=== PATIENT | male | born 1965 | race Caucasian/White ===

== ENCOUNTER 2021-08-07 11:38 | Emergency (ER) | payer MEDICAID ==
[~2021-08-07] VITALS: Ht 167.6 cm; Wt 60.0 kg
[2021-08-07] MEDS ORDERED: EPOETIN ALFA-EPBX 4,000 UNIT/ML VIAL SUBCUT ONE (12:15)
[2021-08-07 12:20] LABS: MEAN CORPUSCULAR HEMOGLOBIN 31.4 pg (28.0-32.0); MEAN CORPUSCULAR VOLUME 90.7 fL (80.0-94.0); MEAN PLATELET VOLUME 6.9 fl (7.4-10.4); PLATELET 317 x1000/uL (130-400); RED BLOOD CELL COUNT 1.81 mill/uL (4.7-6.1); RED CELL DISTRIBUTION WIDTH 14.6 % (11.6-14.6)
[2021-08-07 12:27] LABS: HEMATOCRIT. 16.4 % (42.0-52.0); HEMOGLOBIN. 5.7 g/dL (14.0-18.0)
[2021-08-07 12:28] LABS: CHLORIDE 98 mEq/L (98-107)
[2021-08-07 12:31] LABS: INR 1.1; PROTHROMBIN TIME 11.8 sec (9.6-11.0)
[2021-08-07 13:02] LABS: PLATELET ESTIMATE NORMAL
[2021-08-07 18:47] LABS: HEMATOCRIT 23.3 % (42.0-52.0); HEMOGLOBIN 8.1 g/dL (14.0-18.0)
[2021-08-08 02:00] VITALS: BP 150/78
== END 2021-08-08 02:12 | disposition home or self-care (01) ==
LOC: ER 11:38
DX: N18.6 End stage renal disease (principal); D63.1 Anemia in chronic kidney disease; Z99.2 Dependence on renal dialysis
CPT/HCPCS: 36415; 80053; 85014; 85018; 85025; 85610; 86850; 86900; 86901; 86920; 99291; J0885; P9016

== ENCOUNTER 2021-10-04 18:14 | Inpatient (IN) | payer MEDICAID ==
[~2021-10-04] VITALS: Ht 170.2 cm; Wt 59.0 kg
[2021-10-04 20:07] LABS: MEAN CORPUSCULAR VOLUME 92.3 fL (80.0-94.0); MEAN PLATELET VOLUME 6.8 fl (7.4-10.4); PLATELET 327 x1000/uL (130-400); RED BLOOD CELL COUNT 2.16 mill/uL (4.7-6.1); RED CELL DISTRIBUTION WIDTH 14.3 % (11.6-14.6)
[2021-10-04 20:13] LABS: CHLORIDE 99 mEq/L (98-107)
[2021-10-04 20:19] LABS: HEMOGLOBIN. 6.7 g/dL (14.0-18.0)
[2021-10-04 20:20] LABS: HEMATOCRIT. 19.9 % (42.0-52.0)
[2021-10-04 21:49] LABS: PLATELET ESTIMATE NORMAL
[2021-10-05] MEDS ORDERED: EPOETIN ALFA 4000UNITS/ML VIAL SUBCUT NR (01:45)
[2021-10-05] MEDS ORDERED: EPOETIN ALFA-EPBX 4,000 UNIT/ML VIAL SUBCUT NR ×2 (02:33→21:00)
[2021-10-05 10:00] VITALS: BP 155/69
[2021-10-05] MEDS ORDERED: DOCUSATE SODIUM 100MG CAPSULE PO PRN (10:00)
[2021-10-05] MEDS ORDERED: LORAZEPAM 0.5MG TABLET PO PRN (10:00)
[2021-10-05] MEDS ORDERED: IPRATROPIUM/ALBUTEROL 0.5-3(2.5)MG/3ML NEB HHN PRN (10:00)
[2021-10-05] MEDS ORDERED: ONDANSETRON HCL 4MG/2ML INJ IV PRN (10:00)
[2021-10-05] MEDS ORDERED: ACETAMINOPHEN 325MG TABLET PO PRN ×2 (10:00)
[2021-10-05] MEDS ORDERED: HYDROCODONE/ACETAMINOPHEN 5/325MG TABLET PO PRN (10:00)
[2021-10-05] MEDS ORDERED: INSU100V3 SUBCUT (11:19)
[2021-10-05] MEDS ORDERED: METO25TA6 PO ×2 (11:19→14:47)
[2021-10-05] MEDS ORDERED: CLOP75TA33 PO (11:19)
[2021-10-05] MEDS ORDERED: MULT-1146 PO (11:19)
[2021-10-05] MEDS ORDERED: ASCO100T12 PO (11:19)
[2021-10-05] MEDS ORDERED: NEPVIT MT (11:19)
[2021-10-05] MEDS ORDERED: HYDR-4001 PO (11:19)
[2021-10-05] MEDS ORDERED: TAMS-11 PO (11:19)
[2021-10-05] MEDS ORDERED: ZINC220T3 (11:19)
[2021-10-05] MEDS ORDERED: LANS30CA55 PO (11:19)
[2021-10-05] MEDS ORDERED: APIX5TAB PO (11:19)
[2021-10-05] MEDS ORDERED: FOLI-43 PO (11:19)
[2021-10-05] MEDS ORDERED: AMLO5TAB88 PO (11:19)
[2021-10-05] MEDS ORDERED: ISOS40TA17 PO (11:19)
[2021-10-05] MEDS ORDERED: DOCU-150 PO (11:19)
[2021-10-05] MEDS ORDERED: ATOR20TA65 PO (11:19)
[2021-10-05] MEDS ORDERED: HYDR-4135 PO (11:19)
[2021-10-05] MEDS ORDERED: GABA-529 PO ×2 (11:19→14:49)
[2021-10-05] MEDS ORDERED: DICL100G31 TP (11:19)
[2021-10-05] MEDS ORDERED: ASPI-1497 PO (11:19)
[2021-10-05 12:00] VITALS: BP 116/71
[2021-10-05] MEDS ORDERED: NALOXONE HCL 0.4MG/ML VIAL IV PRN (14:45)
[2021-10-05] MEDS ORDERED: ASPI-864 PO (14:48)
[2021-10-05 16:00] VITALS: BP 158/65
[2021-10-05] MEDS: ISOSORBIDE DINITRATE 20MG TABLET PO SCH (16:17)
[2021-10-05] MEDS: GABAPENTIN 100MG CAPSULE PO SCH (16:17)
[2021-10-05 16:43] LABS: BASOPHILS % 1.4 % (0.0-2.0); EOSINOPHILS % 27.1 % (0.0-5.0); HEMATOCRIT. 27.3 % (42.0-52.0); HEMOGLOBIN. 9.2 g/dL (14.0-18.0); LYMPHOCYTES % 10.7 % (20.0-50.0); MEAN CORPUSCULAR HEMOGLOBIN 30.7 pg (28.0-32.0); MEAN CORPUSCULAR VOLUME 91.2 fL (80.0-94.0); MEAN PLATELET VOLUME 7.1 fl (7.4-10.4); NEUTROPHILS % 56.8 % (40.0-76.0); PLATELET 370 x1000/uL (130-400); RED CELL DISTRIBUTION WIDTH 14.2 % (11.6-14.6)
[2021-10-05] MEDS ORDERED: APIXABAN 5 MG TABLET PO SCH (17:00)
[2021-10-05 20:00] VITALS: BP 144/73
[2021-10-05] MEDS: TAMSULOSIN HCL 0.4MG SR CAPSULE PO SCH (21:16)
[2021-10-05] MEDS: ATORVASTATIN CALCIUM 20MG TABLET PO SCH (21:17)
[2021-10-06] VITALS: BP 154/66
[2021-10-06 04:00] VITALS: BP 152/59
[2021-10-06 06:35] LABS: HEMATOCRIT. 23.9 % (42.0-52.0); HEMOGLOBIN. 8.4 g/dL (14.0-18.0); MEAN CORPUSCULAR HEMOGLOBIN 31.2 pg (28.0-32.0); MEAN CORPUSCULAR VOLUME 89.1 fL (80.0-94.0); MEAN PLATELET VOLUME 6.8 fl (7.4-10.4); PLATELET 349 x1000/uL (130-400); RED BLOOD CELL COUNT 2.68 mill/uL (4.7-6.1); RED CELL DISTRIBUTION WIDTH 14.5 % (11.6-14.6)
[2021-10-06 08:09] VITALS: BP 157/64
[2021-10-06] MEDS: GABAPENTIN 100MG CAPSULE PO SCH ×3 (08:33→16:34)
[2021-10-06] MEDS: ISOSORBIDE DINITRATE 20MG TABLET PO SCH ×3 (08:33→16:33)
[2021-10-06] MEDS: FOLIC ACID/VITAMIN B COMP W-C TABLET PO SCH (08:33)
[2021-10-06] MEDS: DOCUSATE SODIUM 100MG CAPSULE PO SCH (08:33)
[2021-10-06] MEDS ORDERED: CLOPIDOGREL 75MG TABLET PO SCH (09:00)
[2021-10-06] MEDS ORDERED: ASPIRIN 81MG EC TABLET PO SCH (09:00)
[2021-10-06 09:20] LABS: PLATELET ESTIMATE NORMAL
[2021-10-06 12:01] VITALS: BP 170/63
[2021-10-06] MEDS: CLONIDINE 0.1MG TABLET PO PRN (12:15)
[2021-10-06 13:06] LABS: HEPATITIS B SURFACE ANTIGEN NEGATIVE
[2021-10-06 15:18] VITALS: BP 150/56
[2021-10-06 20:00] VITALS: BP 155/61
[2021-10-06] MEDS: ATORVASTATIN CALCIUM 20MG TABLET PO SCH (21:28)
[2021-10-06] MEDS: TAMSULOSIN HCL 0.4MG SR CAPSULE PO SCH (21:30)
[2021-10-06] MEDS ORDERED: IRON SUCROSE COMPLEX 100 MG/5 ML ML IV NR (23:54)
[2021-10-06] MEDS ORDERED: EPOETIN ALFA-EPBX 4,000 UNIT/ML VIAL SUBCUT NR (23:59)
[2021-10-07] VITALS: BP 138/81
[2021-10-07 04:00] VITALS: BP 151/63
[2021-10-07 08:00] VITALS: BP 158/63
[2021-10-07] MEDS: FOLIC ACID/VITAMIN B COMP W-C TABLET PO SCH (09:23)
[2021-10-07] MEDS: DOCUSATE SODIUM 100MG CAPSULE PO SCH (09:24)
[2021-10-07] MEDS: GABAPENTIN 100MG CAPSULE PO SCH ×3 (09:24→16:43)
[2021-10-07] MEDS: ISOSORBIDE DINITRATE 20MG TABLET PO SCH ×3 (09:24→16:43)
[2021-10-07] MEDS: IRON SUCROSE COMPLEX 100 MG/5 ML ML IV SCH (09:25)
[2021-10-07 12:00] VITALS: BP 143/59
[2021-10-07 15:47] VITALS: BP 136/61
[2021-10-07 20:00] VITALS: BP 145/60
[2021-10-07] MEDS ORDERED: SODIUM POLYSTYRENE SULFONATE 15 G/60 ML BOT PO NR (20:00)
[2021-10-07] MEDS ORDERED: EPOETIN ALFA-EPBX 4,000 UNIT/ML VIAL SUBCUT SCH (21:00)
[2021-10-07] MEDS ORDERED: EPOETIN ALFA-EPBX 4,000 UNIT/ML VIAL SUBCUT NR (21:00)
[2021-10-07] MEDS: TAMSULOSIN HCL 0.4MG SR CAPSULE PO SCH (21:23)
[2021-10-07] MEDS: ATORVASTATIN CALCIUM 20MG TABLET PO SCH (21:23)
[2021-10-08] VITALS (8 sets, daily range): BP systolic 133–170; BP diastolic 61–74
[2021-10-08] MEDS: CLONIDINE 0.1MG TABLET PO PRN ×2 (00:52→09:46)
[2021-10-08 06:59] LABS: HEMATOCRIT. 23.2 % (42.0-52.0); HEMOGLOBIN. 8.2 g/dL (14.0-18.0); MEAN CORPUSCULAR VOLUME 90.2 fL (80.0-94.0); MEAN PLATELET VOLUME 6.8 fl (7.4-10.4); PLATELET 383 x1000/uL (130-400); RED BLOOD CELL COUNT 2.57 mill/uL (4.7-6.1); RED CELL DISTRIBUTION WIDTH 14.6 % (11.6-14.6)
[2021-10-08] MEDS: DOCUSATE SODIUM 100MG CAPSULE PO SCH (09:00)
[2021-10-08] MEDS: FOLIC ACID/VITAMIN B COMP W-C TABLET PO SCH (09:37)
[2021-10-08] MEDS: ISOSORBIDE DINITRATE 20MG TABLET PO SCH ×4 (09:38→17:00)
[2021-10-08] MEDS: GABAPENTIN 100MG CAPSULE PO SCH ×2 (09:47→14:17)
[2021-10-08 10:34] LABS: PLATELET ESTIMATE NORMAL
[2021-10-08] MEDS: IRON SUCROSE COMPLEX 100 MG/5 ML ML IV SCH (11:46)
[2021-10-08] MEDS: ATORVASTATIN CALCIUM 20MG TABLET PO SCH (20:11)
[2021-10-08] MEDS: TAMSULOSIN HCL 0.4MG SR CAPSULE PO SCH (20:11)
[2021-10-09 04:10] VITALS: BP 154/59
[2021-10-09 08:00] VITALS: BP 165/61
[2021-10-09] MEDS: FOLIC ACID/VITAMIN B COMP W-C TABLET PO SCH (09:29)
[2021-10-09] MEDS: IRON SUCROSE COMPLEX 100 MG/5 ML ML IV SCH (09:29)
[2021-10-09] MEDS: GABAPENTIN 100MG CAPSULE PO SCH ×4 (09:30→19:55)
[2021-10-09] MEDS: DOCUSATE SODIUM 100MG CAPSULE PO SCH (09:30)
[2021-10-09] MEDS: CLONIDINE 0.1MG TABLET PO PRN (09:35)
[2021-10-09] MEDS: ISOSORBIDE DINITRATE 20MG TABLET PO SCH ×3 (09:36→19:55)
[2021-10-09 12:00] VITALS: BP 109/67
[2021-10-09 16:00] VITALS: BP 158/66
[2021-10-09 20:00] VITALS: BP 140/64
[2021-10-09] MEDS: ATORVASTATIN CALCIUM 20MG TABLET PO SCH (20:44)
[2021-10-09] MEDS: TAMSULOSIN HCL 0.4MG SR CAPSULE PO SCH (20:45)
[2021-10-09] MEDS ORDERED: EPOETIN ALFA 4000UNITS/ML VIAL SUBCUT NR (22:00)
== END 2021-10-09 22:15 | DRG 470 ==
LOC: ER 18:14 → 8WST 10-05 04:19 → ENRESERV 10-05 09:06
PROVIDERS: ADMIT Internal Medicine; ATTEND Internal Medicine
PROC: 30233N1 Transfusion of Nonautologous Red Blood Cells into Peripheral Vein, Percutaneous Approach (ICD-10-PCS; principal; 2021-10-05)
PROC: 5A1D70Z Performance of Urinary Filtration, Intermittent, Less than 6 Hours Per Day (ICD-10-PCS; 2021-10-06)
PROC: 5A1D70Z Performance of Urinary Filtration, Intermittent, Less than 6 Hours Per Day (ICD-10-PCS; 2021-10-07)
DX: I12.0 Hypertensive chronic kidney disease with stage 5 chronic kidney disease or end stage renal disease (principal); U07.1 COVID-19; E87.2 Acidosis; D72.10 Eosinophilia, unspecified; D63.1 Anemia in chronic kidney disease; N18.6 End stage renal disease; E87.1 Hypo-osmolality and hyponatremia; E11.22 Type 2 diabetes mellitus with diabetic chronic kidney disease; E87.5 Hyperkalemia; J44.9 Chronic obstructive pulmonary disease, unspecified; E11.51 Type 2 diabetes mellitus with diabetic peripheral angiopathy without gangrene; E78.5 Hyperlipidemia, unspecified; Z99.2 Dependence on renal dialysis; Z82.49 Family history of ischemic heart disease and other diseases of the circulatory system; Z86.73 Personal history of transient ischemic attack (TIA), and cerebral infarction without residual deficits; Z89.511 Acquired absence of right leg below knee
CPT/HCPCS: 36415; 71045; 80048; 80053; 82270; 82962; 83880; 84484; 85025; 86705; 86709; 86803; 86850; 86900; 86920; 87340; 87426; 93005; 99285; J0885; P9016